=== PATIENT | male | born 1945 | race Caucasian/White ===

== ENCOUNTER → 2016-11-19 | Outpatient (CLI) | payer OTHER | LOC: RT 10:09 | DX: R09.02 Hypoxemia (principal) | CPT/HCPCS: 36600; 82803 ==

== ENCOUNTER → 2020-08-15 | Outpatient (CLI) | payer MEDICARE, OTHER ==
[~2020-08-15] MED LIST: ACETAMINOPHEN-1 EAC1 PO; ALBUTEROL2.5 MG/3 M INH; ALPRAZOLAM0.25 MG PO; ASPIRIN EC81 MG PO; ATORVASTATIN CA40 MG PO; ATORVASTATIN CA80 MG PO; AUGMENTIN 875-1 EACH PO; BREO ELLIPTA 21 EACH INH; BROVANA15 MCG/2 M NEB; CLARITIN10 MG PO; CO Q-10100 MG PO; COLACE 100MG C100 MG PO; COMBIVENT RESPIM4 GM INH; COMBIVENT0.074 GM/I INH; CYMBALTA60 MG PO; DOXYCYCLINE MO100 MG PO; DRISDOL1250 MCG PO; DULOXETINE HCL60 MG PO; FINASTERIDE5 MG PO; IPRAT-ALBUT 0.5-3 ML INH; LEVAQUIN500 MG PO; LEVAQUIN750 MG PO; LEVOTHYROXINE25 MCG PO; LIPITOR TAB 2020 MG PO; MEGACE SUSP40 MG/M1 PO; METOPROLOL TART25 MG PO; MUCINEX600 MG PO; MYCOSTATIN100000 UTS PO; NEURONTIN 100100 MG PO; NITROSTAT0.4 MG SL; PANTOPRAZOLE SO40 MG PO; PEPCID40 MG PO; RANITIDINE HCL150 MG PO; SPIRIVA HANDIH18 MCG INH; SPIRIVA RESPIMAT4 GM INH; STOOL SOFTENER100 M1 PO; SYNTHROID25 MCG PO; VITAMIN B-121000 MC3 PO; VITAMIN D250000 UNIT PO; XANAX 0.25 MG0.25 MG PO
== END ==
LOC: CT 08-03 08:30 → KOH-I 08-03 14:30 → CT 14:34
DX: Z12.2 Encounter for screening for malignant neoplasm of respiratory organs (principal); Z87.891 Personal history of nicotine dependence; R91.8 Other nonspecific abnormal finding of lung field; R59.0 Localized enlarged lymph nodes
CPT/HCPCS: 71271

== ENCOUNTER → 2020-10-31 | Outpatient (CLI) | payer MEDICARE, OTHER ==
[2020-10-31 13:37] LABS: BORDETELLA PARAPERTUSSIS Not Detected (Not Detectd); BORDETELLA PERTUSSIS Not Detected (Not Detectd); CHLAMYDIA PNEUMONIAE Not Detected (Not Detectd); CORONAVIRUS HKU1 Not Detected (Not Detectd); CORONAVIRUS NL63 Not Detected (Not Detectd); CORONAVIRUS OC43 Not Detected (Not Detectd); CORONOAVIRUS 229E Not Detected (Not Detectd); HUMAN METAPNEUMOVIRUS Not Detected (Not Detectd); HUMAN RHINOVIRUS/ENTEROVIRUS Not Detected (Not Detectd); INFLUENZA A Not Detected (Not Detectd); INFLUENZA B Not Detected (Not Detectd); MYCOPLASMA PNEUMONIAE Not Detected (Not Detectd); PARAINFLUENZA VIRUS 1 Not Detected (Not Detectd); PARAINFLUENZA VIRUS 2 Not Detected (Not Detectd); PARAINFLUENZA VIRUS 3 Not Detected (Not Detectd); PARAINFLUENZA VIRUS 4 Not Detected (Not Detectd); RESPIRATORY SYNCYTIAL VIRUS Not Detected (Not Detectd)
[2020-10-31 13:51] LABS: HEMOGLOBIN 16.7 gm/dl (14.0-17.5); RED BLOOD COUNT 5.92 M/UL (4.20-5.50); WHITE BLOOD COUNT 14.4 K/UL (4.5-11.0)
[2020-10-31 14:15] LABS: BUN/CREATININE RATIO 16 (0-10)
[2020-10-31 16:46] LABS: SARS-CoV-2 NOT DETECTED (Not Detectd)
== END ==
LOC: LAB 12:30
PROVIDERS: Internal Medicine
DX: R06.02 Shortness of breath (principal); J44.9 Chronic obstructive pulmonary disease, unspecified; R09.02 Hypoxemia; R06.09 Other forms of dyspnea; E03.9 Hypothyroidism, unspecified; Z20.822 Contact with and (suspected) exposure to COVID-19
CPT/HCPCS: 36415; 71046; 80053; 83880; 84439; 84443; 85025; 87070; 87077; 87186; 87205; 87633

== ENCOUNTER 2021-01-27 00:49 | Inpatient (IN) | payer MEDICARE, OTHER ==
[~2021-01-27] VITALS: Ht 182.9 cm; Wt 70.3 kg
[~2021-01-27 00:49] MED LIST changes: -LEVOTHYROXINE25 MCG PO; -MUCINEX600 MG PO
[2021-01-27 01:36] LABS: HEMOGLOBIN 16.6 gm/dl (14.0-17.5); RED BLOOD COUNT 5.86 M/UL (4.20-5.50); WHITE BLOOD COUNT 14.7 K/UL (4.5-11.0)
[2021-01-27 01:40] LABS: BUN/CREATININE RATIO 15 (0-10)
[2021-01-27] MEDS ORDERED: SYNTHROID 50 M50 MCG PO (11:06)
[2021-01-27] MEDS ORDERED: METOPROLOL TART25 MG PO (11:09)
[2021-01-27] MEDS ORDERED: MUCINEX600 MG PO (11:19)
[2021-01-27] MEDS ORDERED: CLARITIN10 M1 PO (15:28)
[2021-01-27] MEDS ORDERED: COMBIVENT RESPIM4 GM INH (15:32)
[2021-01-27] MEDS ORDERED: ISOSORBIDE MONO30 MG PO (15:34)
[2021-01-27] MEDS ORDERED: NITROSTAT 0.40.4 MG SL (15:36)
[2021-01-27] MEDS ORDERED: LASIX 40 MG TAB40 MG PO (15:36)
[2021-01-27] MEDS ORDERED: MIRALAX17 GM PO (15:37)
[2021-01-27] MEDS ORDERED: PREDNISONE 10 M10 MG PO (15:39)
[2021-01-28 06:17] LABS: RED BLOOD COUNT 5.63 M/UL (4.20-5.50); WHITE BLOOD COUNT 15.9 K/UL (4.5-11.0)
[2021-01-28 06:31] LABS: BUN/CREATININE RATIO 21 (0-10)
[2021-01-29 00:53] LABS: HEMOGLOBIN 16.2 gm/dl (14.0-17.5); RED BLOOD COUNT 5.38 M/UL (4.20-5.50); WHITE BLOOD COUNT 15.5 K/UL (4.5-11.0)
[2021-01-29] MEDS ORDERED: MEDROL DOSEPAK 24 MG PO (12:42)
--- NOTE | 2021-01-29 17:31 | NUR ---
BARNEY CALLED REPORT TO VALE AT [facility].
== END 2021-01-29 17:12 | disposition home health service (06) | DRG 189 ==
LOC: ER1 00:49 → CDU 05:16 → MED SURG 4 05:16
PROVIDERS: Family Medicine; Internal Medicine; ADMIT Internal Medicine
DX: J96.01 Acute respiratory failure with hypoxia (principal); J44.1 Chronic obstructive pulmonary disease with (acute) exacerbation; I50.22 Chronic systolic (congestive) heart failure; C34.90 Malignant neoplasm of unspecified part of unspecified bronchus or lung; Z20.822 Contact with and (suspected) exposure to COVID-19; I49.3 Ventricular premature depolarization; K21.9 Gastro-esophageal reflux disease without esophagitis; E03.9 Hypothyroidism, unspecified; J96.11 Chronic respiratory failure with hypoxia; I11.0 Hypertensive heart disease with heart failure; N40.0 Benign prostatic hyperplasia without lower urinary tract symptoms; E78.5 Hyperlipidemia, unspecified; I25.5 Ischemic cardiomyopathy; I45.10 Unspecified right bundle-branch block; I25.10 Atherosclerotic heart disease of native coronary artery without angina pectoris; I25.2 Old myocardial infarction; Z95.1 Presence of aortocoronary bypass graft; Z95.810 Presence of automatic (implantable) cardiac defibrillator; Z87.01 Personal history of pneumonia (recurrent); Z90.79 Acquired absence of other genital organ(s); Z99.81 Dependence on supplemental oxygen; Z79.01 Long term (current) use of anticoagulants; Z79.82 Long term (current) use of aspirin; Z80.9 Family history of malignant neoplasm, unspecified; Z82.3 Family history of stroke; Z79.899 Other long term (current) drug therapy; Z90.2 Acquired absence of lung [part of]
CPT/HCPCS: 36415; 36600; 71045; 71046; 80048; 80053; 82550; 82553; 82803; 83735; 83874; 83880; 84132; 84484; 85025; 85027; 87040; 93005; 94640; 94664; 94760; 96374; 99285; J1650; J1940; J2543; J2930; U0002

== ENCOUNTER → 2021-03-06 | Outpatient (CLI) | payer MEDICARE, OTHER ==
[~2021-03-06] MED LIST changes: +CLARITIN10 M1 PO; +ISOSORBIDE MONO30 MG PO; +LASIX 40 MG TAB40 MG PO; +MEDROL DOSEPAK 24 MG PO; +MIRALAX17 GM PO; +MUCINEX600 MG PO; +NITROSTAT 0.40.4 MG SL; +PREDNISONE 10 M10 MG PO; +SYNTHROID 50 M50 MCG PO
[2021-03-06 13:36] LABS: HEMOGLOBIN 15.5 gm/dl (14.0-17.5); RED BLOOD COUNT 5.34 M/UL (4.20-5.50); WHITE BLOOD COUNT 11.8 K/UL (4.5-11.0)
== END ==
LOC: LBRF 12:57
PROVIDERS: Internal Medicine
DX: R79.89 Other specified abnormal findings of blood chemistry (principal); R74.8 Abnormal levels of other serum enzymes; R68.89 Other general symptoms and signs
CPT/HCPCS: 80053; 83880; 85025

== ENCOUNTER → 2021-06-18 | Outpatient (CLI) | payer MEDICARE, OTHER ==
[~2021-06-18] MED LIST changes: +AMOX TR-K CLV1 EAC4 PO; +AVIDOXY100 MG PO; +ONDANSETRON HCL4 MG PO; +PREDNISONE10 MG PO; +PROTONIX 40 MG40 M1 PO; +SPIRONOLACTONE25 MG PO; +VITAMIN C1000 MG PO
== END ==
LOC: RAD 12:36
DX: J42 Unspecified chronic bronchitis (principal); J84.89 Other specified interstitial pulmonary diseases
CPT/HCPCS: 71046

== ENCOUNTER 2021-07-12 13:42 | Emergency (ER) | payer MEDICARE, MEDICAID ==
[~2021-07-12 13:42] MED LIST changes: -AMOX TR-K CLV1 EAC4 PO; -AVIDOXY100 MG PO; -ONDANSETRON HCL4 MG PO; -PREDNISONE10 MG PO; -SPIRONOLACTONE25 MG PO; -VITAMIN C1000 MG PO
[2021-07-12 14:31] LABS: HEMOGLOBIN 15.9 gm/dl (14.0-17.5); RED BLOOD COUNT 5.29 M/UL (4.20-5.50); WHITE BLOOD COUNT 9.1 K/UL (4.5-11.0)
[2021-07-13] MEDS ORDERED: PREDNISONE10 MG PO (13:49)
[2021-07-13] MEDS ORDERED: SPIRONOLACTONE25 MG PO (13:50)
[2021-07-13] MEDS ORDERED: VITAMIN C1000 MG PO (13:51)
[2021-07-13] MEDS ORDERED: MIRALAX17 GM PO (13:51)
[2021-07-13] MEDS ORDERED: ONDANSETRON HCL4 MG PO (13:57)
[2021-07-13] MEDS ORDERED: AVIDOXY100 MG PO (14:00)
[2021-07-13] MEDS ORDERED: AMOX TR-K CLV1 EAC4 PO (14:01)
== END 2021-07-14 12:00 | disposition left against medical advice (07) ==
LOC: ER1 13:42
PROVIDERS: Emergency Medicine
DX: I63.9 Cerebral infarction, unspecified (principal); R29.810 Facial weakness; R47.89 Other speech disturbances; R29.702 NIHSS score 2; I11.0 Hypertensive heart disease with heart failure; I50.9 Heart failure, unspecified; J44.9 Chronic obstructive pulmonary disease, unspecified; I25.10 Atherosclerotic heart disease of native coronary artery without angina pectoris; E78.5 Hyperlipidemia, unspecified; Z95.0 Presence of cardiac pacemaker
CPT/HCPCS: 70450; 70496; 70498; 71045; 80053; 82550; 82553; 82962; 83874; 84484; 85025; 85610; 85730; 93005; 94640; 94760; 99285; J7030; Q9967; U0002

== ENCOUNTER 2021-08-02 13:28 | Emergency (ER) | payer MEDICARE, OTHER ==
[~2021-08-02 13:28] MED LIST changes: +AMOX TR-K CLV1 EAC4 PO; +AVIDOXY100 MG PO; +ONDANSETRON HCL4 MG PO; +PREDNISONE10 MG PO; +SPIRONOLACTONE25 MG PO; +VITAMIN C1000 MG PO
== END 2021-08-02 15:35 | disposition home or self-care (01) ==
LOC: ER1 13:28
DX: I82.611 Acute embolism and thrombosis of superficial veins of right upper extremity (principal); J44.9 Chronic obstructive pulmonary disease, unspecified
CPT/HCPCS: 93971; 99283

== ENCOUNTER → 2021-08-08 | Outpatient (CLI) | payer MEDICARE | LOC: EXRD 14:11 | DX: R04.2 Hemoptysis (principal); J43.9 Emphysema, unspecified; J84.10 Pulmonary fibrosis, unspecified | CPT/HCPCS: 71046 ==

== ENCOUNTER → 2021-08-13 | Outpatient (CLI) | payer MEDICARE, OTHER | LOC: KOH-I 08-09 13:30 | DX: I82.621 Acute embolism and thrombosis of deep veins of right upper extremity (principal); I82.611 Acute embolism and thrombosis of superficial veins of right upper extremity | CPT/HCPCS: 93971 ==

== ENCOUNTER → 2021-08-20 | Outpatient (CLI) | payer MEDICARE | LOC: KOH-I 11:00 | DX: Z87.891 Personal history of nicotine dependence (principal); R91.1 Solitary pulmonary nodule | CPT/HCPCS: 71271 ==

== ENCOUNTER 2021-11-04 15:25 | Emergency (ER) | payer MEDICARE, OTHER | END 2021-11-04 16:02 | disposition left against medical advice (07) | LOC: ER1 15:25 | DX: Z53.21 Procedure and treatment not carried out due to patient leaving prior to being seen by health care provider (principal) ==